=== PATIENT | male | born 1965 | race Caucasian/White ===

== ENCOUNTER → 2017-10-20 | Outpatient (CLI) | payer OTHER ==
[2017-10-20 12:02] LABS: HEMATOCRIT 46.5 % (42.0-52.0); HEMOGLOBIN 15.8 g/dl (14.0-18.0); MEAN CORPUSCULAR VOLUME 88.2 fl (80.0-96.0); PLATELET COUNT, AUTOMATED 199 10^3/uL (150-450); RED BLOOD COUNT 5.27 10^6/uL (4.30-6.10); RED CELL DISTRIBUTION WIDTH 13.1 % (11.5-14.5); WHITE BLOOD COUNT 5.6 10^3/uL (4.0-10.0)
[2017-10-20 12:35] LABS: TESTOSTERONE 602 NG/DL (241-827); TOTAL 25(OH) VITAMIN D 38.3 NG/ML (30.0-100.0)
[2017-10-20 12:38] LABS: ESTIMATED AVERAGE GLUCOSE 131 MG/DL (60-110); HEMOGLOBIN A1c 6.2 %
[2017-10-20 13:08] LABS: ALBUMIN 4.2 GM/DL (3.2-5.2); ALBUMIN/GLOBULIN RATIO 1.31 (1.00-1.93); ALKALINE PHOSPHATASE 70 U/L (45-117); ALT/SGPT 43 U/L (12-78); ANION GAP 6 MEQ/L (8-16); AST/SGOT 36 U/L (7-37); BLOOD UREA NITROGEN 12 MG/DL (7-18); CALCIUM LEVEL 8.9 MG/DL (8.5-10.1); CARBON DIOXIDE LEVEL 29 MEQ/L (21-32); CHLORIDE LEVEL 105 MEQ/L (98-107); CHOLESTEROL LEVEL 134 MG/DL (<200); CREATININE FOR GFR 0.91 MG/DL (0.70-1.30); GLOMERULAR FILTRATION RATE > 60.0 (>56); GLUCOSE, FASTING 96 MG/DL (70-100); HDL CHOLESTEROL 42 MG/DL (>40); NON-HDL-C 92 MG/DL; PROSTATIC SPECIFIC AG MONITOR 0.51 NG/ML (< 4.0); SODIUM LEVEL 140 MEQ/L (136-145); TOTAL PROTEIN 7.4 GM/DL (6.4-8.2); TRIGLYCERIDES LEVEL 100 MG/DL (<150)
== END ==
LOC: M LAB 10:18
DX: I10 Essential (primary) hypertension (principal); N40.0 Benign prostatic hyperplasia without lower urinary tract symptoms; R53.83 Other fatigue; E03.9 Hypothyroidism, unspecified
CPT/HCPCS: 71046

== ENCOUNTER 2018-04-24 06:47 | Day surgery (SDC) | payer OTHER ==
[2018-04-24] MEDS: NS 1,000 ML IV (07:06)
[2018-04-24] MEDS ORDERED: PROPOFOL 200 MG/20 ML VIAL As Ordered ×2 (07:34→08:00)
[2018-04-24] MEDS ORDERED: GLYCOPYRROLATE INJ 0.2 MG/ML 2 ML VIAL As Ordered (07:50)
== END 2018-04-24 08:31 | disposition home or self-care (01) ==
LOC: M OPP 06:47
DX: Z12.11 Encounter for screening for malignant neoplasm of colon (principal); K57.30 Diverticulosis of large intestine without perforation or abscess without bleeding; I10 Essential (primary) hypertension; E78.5 Hyperlipidemia, unspecified; E66.9 Obesity, unspecified; M19.90 Unspecified osteoarthritis, unspecified site; Z86.69 Personal history of other diseases of the nervous system and sense organs; Z87.19 Personal history of other diseases of the digestive system; Z88.8 Allergy status to other drugs, medicaments and biological substances; Z79.82 Long term (current) use of aspirin; Z79.899 Other long term (current) drug therapy; Z83.71 Family history of colonic polyps
CPT/HCPCS: 45378

== ENCOUNTER → 2018-10-06 | Outpatient (CLI) | payer OTHER ==
[~2018-10-06] MED LIST: ASPI1TAB PO; LOSA100T50 PO; MELO7.5T7 PO; PRAV40TA2 PO; VALS1TAB46 PO; VITA100067 PO
--- NOTE | 2018-10-07 10:01 | REP ---
PA and lateral chest: Comparison is 10/20/2017. The lung beatty are clear. The cardiac size is normal. The basilio, mediastinum, and skeletal structures are unremarkable. Impression: Negative PA and lateral chest. No interval change. Electronically Signed by Aram Birch MD 10/07/2018 09:52 A
== END ==
LOC: M WUC 17:27
PROVIDERS: ATTEND Physician Assistant
DX: R05 Cough (principal); J20.9 Acute bronchitis, unspecified

== ENCOUNTER → 2018-12-20 | Outpatient (CLI) | payer OTHER ==
[~2018-12-20] MED LIST changes: -ASPI1TAB PO; +ASPI81TA26 PO; -VALS1TAB46 PO; +VALS1TAB66 PO
[2018-12-20 09:49] LABS: HEMATOCRIT 43.3 % (42.0-52.0); HEMOGLOBIN 14.9 g/dl (13.5-17.5); MEAN CORPUSCULAR HEMOGLOBIN 32.3 pg (27.0-33.0); MEAN CORPUSCULAR HGB CONC 34.4 g/dl (32.0-36.5); MEAN CORPUSCULAR VOLUME 93.9 fl (80.0-96.0); PLATELET COUNT, AUTOMATED 193 10^3/uL (150-450); RED BLOOD COUNT 4.61 10^6/uL (4.30-6.10); WHITE BLOOD COUNT 5.8 10^3/uL (4.0-10.0)
--- NOTE | 2018-12-20 10:00 | REP ---
Chest two views HISTORY: Weakness Comparison: 10/06/2018 The lungs are clear. The heart is normal in size. The pulmonary vasculature is normal in appearance. The bony structure is intact. IMPRESSION: No acute disease. Electronically Signed by Jaimn Archer MD 12/20/2018 09:52 A
[2018-12-20 10:24] LABS: ALBUMIN 4.1 GM/DL (3.2-5.2); ALT/SGPT 46 U/L (12-78); BILIRUBIN,TOTAL 0.9 MG/DL (0.2-1.0); BLOOD UREA NITROGEN 18 MG/DL (7-18); CALCIUM LEVEL 8.8 MG/DL (8.5-10.1); CARBON DIOXIDE LEVEL 28 MEQ/L (21-32); CHLORIDE LEVEL 106 MEQ/L (98-107); CHOLESTEROL LEVEL 131 MG/DL (<200); CHOLESTEROL RISK RATIO 3.275 (<5); CREATININE FOR GFR 0.97 MG/DL (0.70-1.30); GLOMERULAR FILTRATION RATE > 60.0 (>56); GLUCOSE, FASTING 99 MG/DL (70-100); HDL CHOLESTEROL 40 MG/DL (>40); LDL CHOLESTEROL 70 MG/DL (<100); NON-HDL-C 91 MG/DL; POTASSIUM SERUM 4.3 MEQ/L (3.5-5.1); SODIUM LEVEL 140 MEQ/L (136-145); TRIGLYCERIDES LEVEL 105 MG/DL (<150)
[2018-12-20 10:25] LABS: TOTAL 25(OH) VITAMIN D 37.2 NG/ML (30.0-100.0)
[2018-12-20 10:26] LABS: TESTOSTERONE 691 NG/DL (241-827)
--- NOTE | 2018-12-20 10:40 | ECGEPIP ---
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
[2018-12-20 11:00] LABS: HEMOGLOBIN A1c 5.7 %
== END ==
LOC: M LAB 09:04
PROVIDERS: ATTEND Family Medicine
DX: I10 Essential (primary) hypertension (principal); E03.9 Hypothyroidism, unspecified

== ENCOUNTER → 2020-06-01 | Outpatient (CLI) | payer OTHER ==
--- NOTE | 2020-06-03 10:32 | SLEEPCENT ---
DATE: 06/01/2020 ORDERED BY: ZBIGNIEW Newman Nocturnal polysomnography was performed for evaluation of sleep physiology in this patient with a history of excessive somnolence and irregular breathing in sleep. Seven hours and 56 minutes of data were reviewed. There were 316.5 minutes of sleep identified. Sleep latency was normal at 13 minutes. REM latency was normal at 99 minutes. Sleep architecture showed poor progression. Improvement was seen later in the study after interventions were made. The overall sleep efficiency was 67.1%. The EKG showed a sinus rhythm with small complexes. Average heart rate was 60 beats per minute. EEG showed some alpha intrusion, no focal waveforms were appreciated. There were normal waves for wake and sleep. There were 232 respiratory events identified of 10 seconds in duration or greater for apnea-hypopnea index of 44. The events were obstructive and having clearly identified the presence of obstructive sleep apnea syndrome early in testing, the study was stopped at midnight for the application of pressure therapy. The patient was fit with a ResMed F20 full face mask of large size, 4 cm of water pressure were applied to the circuit and the lights were again extinguished. Throughout the remaining hours of testing, pressure titration was performed to an optimal pressure of +8 with which the patient slept through REM without respiratory event or oxygen desaturation. There was some minor limb activity noted mostly early in the study. Limb movement arousal index was 2.3. IMPRESSION: Obstructive sleep apnea syndrome (G47.33). Apnea-hypopnea index 44. RECOMMENDATION: Nightly use of pressure therapy 8 cm of water. MTDD
== END ==
LOC: M SLEEP 20:00
PROVIDERS: ATTEND Physician Assistant
DX: G47.33 Obstructive sleep apnea (adult) (pediatric) (principal)

== ENCOUNTER → 2021-01-08 | Outpatient (CLI) | payer OTHER ==
--- NOTE | 2021-01-10 03:49 | REP ---
INDICATION: SCIATICA COMPARISON: None. TECHNIQUE: AP, lateral, bilateral oblique, and coned-down views of the lumbar spine. FINDINGS: Chronic L5 spondylolysis with grade 2 spondylolisthesis at the L5-S1 level along with endplate sclerosis, disc space obliteration, osteophytosis and facet hypertrophy. Remainder of the examination demonstrates early advanced degenerative changes including endplate sclerosis, disc space narrowing, and osteophytosis. IMPRESSION: 1. Advanced spondylolysis and spondylolisthesis at L5-S1. 2. Early advanced multilevel degenerative changes from lower thoracic through L4-5 level. <Electronically signed by Ignacio Abdalla > 01/10/21 [id number]
--- NOTE | 2021-01-10 04:14 | REP ---
INDICATION: SCIATICA COMPARISON: None. TECHNIQUE: AP and frog-lateral views of the right and left hip FINDINGS: Generalized age-related changes include subtle increased sclerosis to the acetabulum with minimal joint space narrowing. No further overt osteoarthritic or significant degenerative changes are appreciated. No evidence for acute or healed injury. Surrounding soft tissues are normal. IMPRESSION: Mild symmetric generalized age-related changes. <Electronically signed by Ignacio Abdalla > 01/10/21 [id number]
== END ==
LOC: M WUC 09:40
PROVIDERS: ATTEND Family Medicine
DX: M43.17 Spondylolisthesis, lumbosacral region (principal); M16.0 Bilateral primary osteoarthritis of hip; M54.31 Sciatica, right side; M54.32 Sciatica, left side

== ENCOUNTER → 2021-03-26 | Outpatient (CLI) | payer OTHER ==
--- NOTE | 2021-03-29 15:47 | SLEEPCENT ---
DATE: 03/26/2021 CPAP RE-TITRATION ORDERED BY: ZBIGNIEW Newman Nocturnal polysomnography was performed for re-titration of pressure therapy in this patient with obstructive sleep apnea syndrome. For testing a ResMed Airfit F20 full face mask of medium size was used, 8 cm of water pressure were applied to the circuit, and the lights were extinguished. Eight hours and 1 minute of data were reviewed. There were 259.5 minutes of sleep identified. Sleep latency was normal at 16 minutes. REM latency was normal at 119 minutes. Sleep architecture improved with pressure therapy. There was a prolonged period of wake between 1:00 and 3:30 resulting in reduced sleep efficiency of 54.7%. The electrocardiogram showed a sinus rhythm with an average heart rate of 50 beats per minute. Rate ranged 40-70. EEG showed normal waveforms for wake and sleep. Respiratory events were fully palliated with CPAP at a pressure of 10 and remaining measures of sleep physiology were normal. IMPRESSION: Obstructive sleep apnea syndrome (G47.33). RECOMMENDATION: Nightly use of pressure therapy 10 cm of water. cc: PIYUSH MCGREGOR MD
== END ==
LOC: M SLEEP 20:00
PROVIDERS: ATTEND Physician Assistant
DX: G47.33 Obstructive sleep apnea (adult) (pediatric) (principal)

== ENCOUNTER → 2021-07-14 | Outpatient (CLI) | payer OTHER ==
--- NOTE | 2021-07-14 17:58 | REP ---
INDICATION: MRI Clearance. COMPARISON: None. TECHNIQUE: AP and lateral views of the skull were obtained. FINDINGS: There are "prieto hole" craniotomy defects in both parietal bones posteriorly. There is no associated metallic component. There is noted shunt tubing over the right side of the skull and neck. There are no other significant findings. IMPRESSION: There are no findings to contraindicate MR imaging. <Electronically signed by Sudeep Killian > 07/14/21 [id number]
--- NOTE | 2021-07-15 11:01 | REP ---
INDICATION: UNILATERAL PRIMARY OSTEOARTHRITIS, RIGHT HIP. COMPARISON: None. TECHNIQUE: Axial T1 and T2. Sagittal T2. Coronal T1, fat suppressed proton density, fat suppressed T2 and STIR. FINDINGS: The femoral heads are spherical in shape and symmetric in appearance. There is no abnormal focal chondral or subchondral signal seen arising from the femoral or acetabular component of either hip. There is no hip joint effusion. The cortical and marrow signal seen throughout the imaged osseous structures is within normal limits. There is T2 hyper signal seen in the right hip trochanteric tendono bursal region. Small [id number] magnified dedicated images of the right hip in all 3 planes again shows T2 hyper signal in the trochanteric tendono bursal region with an isolated 1.6 cm sized fluid collection. There is no evidence of a mass or mass effect. IMPRESSION: There is right hip trochanteric tendono bursitis. <Electronically signed by Enoc Boudreaux > 07/15/21 1053
== END ==
LOC: M RAD 17:25
DX: M16.11 Unilateral primary osteoarthritis, right hip (principal); M70.61 Trochanteric bursitis, right hip

== ENCOUNTER → 2021-12-13 | Outpatient (CLI) | payer OTHER ==
[~2021-12-13] MED LIST changes: +LOSA100T45 PO; -LOSA100T50 PO
[2021-12-13 10:20] LABS: HEMATOCRIT 42.5 % (42.0-52.0); HEMOGLOBIN 14.5 g/dl (13.5-17.5); MEAN CORPUSCULAR HEMOGLOBIN 31.5 pg (27.0-33.0); MEAN CORPUSCULAR HGB CONC 34.1 g/dl (32.0-36.5); MEAN CORPUSCULAR VOLUME 92.4 fl (80.0-96.0); PLATELET COUNT, AUTOMATED 204 10^3/uL (150-450); WHITE BLOOD COUNT 5.3 10^3/uL (4.0-10.0)
[2021-12-13 10:59] LABS: ALBUMIN 3.8 GM/DL (3.2-5.2); ALT/SGPT 33 U/L (12-78); BILIRUBIN,TOTAL 0.6 MG/DL (0.2-1.0); BLOOD UREA NITROGEN 16 MG/DL (7-18); CALCIUM LEVEL 9.2 MG/DL (8.5-10.1); CARBON DIOXIDE LEVEL 24 MEQ/L (21-32); CHLORIDE LEVEL 111 MEQ/L (98-107); CHOLESTEROL LEVEL 155 MG/DL (<200); CHOLESTEROL RISK RATIO 4.558 (<5); CREATININE FOR GFR 0.96 MG/DL (0.70-1.30); GLOMERULAR FILTRATION RATE > 60.0 (>56); GLUCOSE, FASTING 99 MG/DL (70-100); HDL CHOLESTEROL 34 MG/DL (>40); LDL CHOLESTEROL 101 MG/DL (<100); NON-HDL-C 121 MG/DL; POTASSIUM SERUM 4.3 MEQ/L (3.5-5.1); PROSTATIC SPECIFIC AG MONITOR 0.55 NG/ML (< 4.00); SODIUM LEVEL 141 MEQ/L (136-145); TRIGLYCERIDES LEVEL 102 MG/DL (<150)
[2021-12-13 11:05] LABS: TESTOSTERONE 654 NG/DL (241-827); TOTAL 25(OH) VITAMIN D 35.3 NG/ML (30.0-100.0)
[2021-12-13 11:59] LABS: HEMOGLOBIN A1c 5.5 %
== END ==
LOC: M LAB 09:49
PROVIDERS: ATTEND Family Medicine
DX: I10 Essential (primary) hypertension (principal); R53.83 Other fatigue; E03.9 Hypothyroidism, unspecified

== ENCOUNTER → 2022-12-29 | Outpatient (CLI) | payer OTHER ==
[~2022-12-29] MED LIST changes: -LOSA100T45 PO; +LOSA100T46 PO
[2022-12-29 12:05] LABS: HEMATOCRIT 45.9 % (42.0-52.0); HEMOGLOBIN 15.4 g/dl (13.5-17.5); MEAN CORPUSCULAR HEMOGLOBIN 30.7 pg (27.0-33.0); MEAN CORPUSCULAR HGB CONC 33.6 g/dl (32.0-36.5); MEAN CORPUSCULAR VOLUME 91.4 fl (80.0-96.0); PLATELET COUNT, AUTOMATED 175 10^3/uL (150-450); RED BLOOD COUNT 5.02 10^6/uL (4.30-6.10); WHITE BLOOD COUNT 5.2 10^3/uL (4.0-10.0)
[2022-12-29 12:30] LABS: HEMOGLOBIN A1c 5.5 % (4.0-6.0)
[2022-12-29 12:35] LABS: PROSTATIC SPECIFIC AG MONITOR 0.47 NG/ML (< 4.00)
[2022-12-29 12:39] LABS: ALBUMIN 4.4 G/DL (3.2-5.2); ALKALINE PHOSPHATASE 62 U/L (46-116); ALT/SGPT 41 U/L (7.0-40); AST/SGOT 42 U/L (<34); BILIRUBIN,TOTAL 1.3 MG/DL (0.3-1.2); BLOOD UREA NITROGEN 19 MG/DL (9-23); CALCIUM LEVEL 8.5 MG/DL (8.5-10.1); CARBON DIOXIDE LEVEL 25 MMOL/L (20-31); CHLORIDE LEVEL 106 MMOL/L (98-107); CHOLESTEROL LEVEL 151 MG/DL (<200); CREATININE FOR GFR 0.92 MG/DL (0.70-1.30); GLOMERULAR FILTRATION RATE > 60.0 (>56); GLUCOSE, FASTING 101 MG/DL (60-100); HDL CHOLESTEROL 38.7 MG/DL (>40); LDL CHOLESTEROL 96.5 MG/DL (<100); NON-HDL-C 112.3 MG/DL; POTASSIUM SERUM 4.2 MMOL/L (3.5-5.1); SODIUM LEVEL 139 MMOL/L (136-145); THYROID STIMULATING HORMONE 2.424 uIU/ML (0.55-4.78); TRIGLYCERIDES LEVEL 79 MG/DL (<150)
[2022-12-29 12:40] LABS: TESTOSTERONE 665 NG/DL (241-827)
== END ==
LOC: M LAB 10:42
PROVIDERS: ATTEND Family Medicine
DX: I10 Essential (primary) hypertension (principal); R53.83 Other fatigue; E03.9 Hypothyroidism, unspecified; I44.0 Atrioventricular block, first degree; R94.31 Abnormal electrocardiogram [ECG] [EKG]

== ENCOUNTER → 2024-01-18 | Outpatient (CLI) | payer OTHER ==
[2024-01-18 12:37] LABS: HEMATOCRIT 41.8 % (42.0-52.0); HEMOGLOBIN 14.1 g/dl (13.5-17.5); MEAN CORPUSCULAR HEMOGLOBIN 30.5 pg (27.0-33.0); MEAN CORPUSCULAR HGB CONC 33.7 g/dl (32.0-36.5); MEAN CORPUSCULAR VOLUME 90.5 fl (80.0-96.0); PLATELET COUNT, AUTOMATED 191 10^3/uL (150-450); RED BLOOD COUNT 4.62 10^6/uL (4.30-6.10); WHITE BLOOD COUNT 6.1 10^3/uL (4.0-10.0)
[2024-01-18 12:58] LABS: HEMOGLOBIN A1c 5.6 % (4.0-6.0)
[2024-01-18 13:07] LABS: ALBUMIN 3.9 G/DL (3.2-5.2); ALKALINE PHOSPHATASE 61 U/L (46-116); ALT/SGPT 46 U/L (7.0-40); AST/SGOT 28 U/L (<34); BILIRUBIN,TOTAL 0.9 MG/DL (0.3-1.2); BLOOD UREA NITROGEN 21 MG/DL (9-23); CARBON DIOXIDE LEVEL 27 MMOL/L (20-31); CHLORIDE LEVEL 108 MMOL/L (98-107); CHOLESTEROL LEVEL 150 MG/DL (<200); CHOLESTEROL RISK RATIO 4.13 (<5); CREATININE FOR GFR 0.95 MG/DL (0.70-1.30); GLOMERULAR FILTRATION RATE > 60.0 (>56); GLUCOSE, FASTING 101 MG/DL (60-100); HDL CHOLESTEROL 36.3 MG/DL (>40); LDL CHOLESTEROL 90.5 MG/DL (<100); NON-HDL-C 113.7 MG/DL; POTASSIUM SERUM 4.2 MMOL/L (3.5-5.1); SODIUM LEVEL 140 MMOL/L (136-145); TESTOSTERONE 754 NG/DL (241-827); THYROID STIMULATING HORMONE 2.918 uIU/ML (0.55-4.78); TOTAL PROTEIN 6.6 G/DL (5.7-8.2); TRIGLYCERIDES LEVEL 116 MG/DL (<150)
== END ==
LOC: M EKG 10:47
PROVIDERS: ATTEND Family Medicine
DX: R53.83 Other fatigue (principal); I10 Essential (primary) hypertension

== ENCOUNTER → 2024-05-30 | Outpatient (CLI) | payer OTHER ==
[2024-05-30 11:50] LABS: HEMATOCRIT 43.1 % (42.0-52.0); HEMOGLOBIN 14.4 g/dl (13.5-17.5); MEAN CORPUSCULAR HEMOGLOBIN 30.1 pg (27.0-33.0); MEAN CORPUSCULAR HGB CONC 33.4 g/dl (32.0-36.5); PLATELET COUNT, AUTOMATED 209 10^3/uL (150-450); RED BLOOD COUNT 4.79 10^6/uL (4.30-6.10); WHITE BLOOD COUNT 6.2 10^3/uL (4.0-10.0)
[2024-05-30 12:07] LABS: HEMOGLOBIN A1c 5.8 % (4.0-6.0)
[2024-05-30 12:15] LABS: ALBUMIN 3.9 G/DL (3.2-5.2); ALKALINE PHOSPHATASE 74 U/L (40-129); ALT/SGPT 48 U/L (7.0-40); AST/SGOT 34 U/L (<34); BILIRUBIN,TOTAL 0.7 MG/DL (0.3-1.2); BLOOD UREA NITROGEN 21 MG/DL (9-23); CALCIUM LEVEL 9.5 MG/DL (8.3-10.6); CARBON DIOXIDE LEVEL 26 MMOL/L (20-31); CHLORIDE LEVEL 109 MMOL/L (98-107); CHOLESTEROL LEVEL 161 MG/DL (<200); CHOLESTEROL RISK RATIO 5.11 (<5); CREATININE FOR GFR 0.94 MG/DL (0.70-1.30); GLOMERULAR FILTRATION RATE > 60.0 (>49); GLUCOSE, FASTING 106 MG/DL (74-106); HDL CHOLESTEROL 31.5 MG/DL (>40); LDL CHOLESTEROL 110.9 MG/DL (<100); NON-HDL-C 129.5 MG/DL; POTASSIUM SERUM 4.4 MMOL/L (3.5-5.1); SODIUM LEVEL 140 MMOL/L (136-145); TOTAL PROTEIN 7.2 G/DL (5.7-8.2); TRIGLYCERIDES LEVEL 93 MG/DL (<150)
[2024-05-30 12:20] LABS: THYROID STIMULATING HORMONE 3.606 uIU/ML (0.55-4.78); TOTAL 25(OH) VITAMIN D 55.5 NG/ML (20.0-100.0)
== END ==
LOC: M RAD 08:59
PROVIDERS: ATTEND Family Medicine
DX: I10 Essential (primary) hypertension (principal); J18.9 Pneumonia, unspecified organism; R53.83 Other fatigue